=== PATIENT | female | born 1995 | race Hispanic/Latino ===

== ENCOUNTER 2017-04-22 01:14 | Emergency (ER) | payer BC, OTHER | END 2017-04-22 02:05 | disposition home or self-care (01) | LOC: ERS 01:14 | DX: O90.2 Hematoma of obstetric wound (principal) | CPT/HCPCS: 99283 ==

== ENCOUNTER 2019-12-27 15:34 | Emergency (ER) | payer BC, OTHER ==
[2019-12-28 15:21] LABS: SARS-CoV-2 MS2 Positive; SARS-CoV-2 N Gene Negative; SARS-CoV-2 S Gene Negative; SARS-CoV-2 orf1ab Negative
== END 2019-12-27 16:25 | disposition home or self-care (01) ==
LOC: ERS 15:34
DX: Z20.828 Contact with and (suspected) exposure to other viral communicable diseases (principal); B20 Human immunodeficiency virus [HIV] disease; Z79.899 Other long term (current) drug therapy
CPT/HCPCS: 87635; 99283; U0003

== ENCOUNTER 2024-06-07 11:45 | Emergency (ER) | payer OTHER, SELFPAY | END 2024-06-07 13:16 | disposition home or self-care (01) | LOC: ERS 11:45 | DX: M76.52 Patellar tendinitis, left knee (principal); Z21 Asymptomatic human immunodeficiency virus [HIV] infection status | CPT/HCPCS: 93923 ==